=== PATIENT | male | born 1960 | race Two or more races ===

== ENCOUNTER 2018-08-02 06:54 | Day surgery (SDC) | payer OTHER ==
[~2018-08-02 06:54] MED LIST: LACTATED RINGER'S 1,000 ML IV
[2018-08-02] MEDS ORDERED: FENTAnyl 50 MCG/ML VIAL (08:09)
[2018-08-02] MEDS ORDERED: LIDOCAINE 3.5% GEL TUBE (08:10)
[2018-08-02] MEDS ORDERED: MIDAZOLAM 1 MG/ML 2 ML INJ (08:23)
[2018-08-02] MEDS ORDERED: DEXAMETHASONE 4 MG/ML 1 ML INJ (08:23)
[2018-08-02] MEDS ORDERED: METOCLOPRAMIDE 10 MG INJ (08:23)
[2018-08-02] MEDS ORDERED: ONDANSETRON 4 MG INJ (08:23)
[2018-08-02] MEDS: TROPICAMIDE 1% 3 ML OPH OPER (08:42)
[2018-08-02] MEDS: BROMFENAC SODIUM 1.7 ML OPH DROP OPER (08:43)
[2018-08-02] MEDS: TETRACAINE 0.5% 4 ML OPH OPER (08:43)
[2018-08-02] MEDS: CYCLOPENTOLATE 2% 2 ML OPH OPER (08:43)
[2018-08-02] MEDS: MOXIFLOXACIN 0.5% 3 ML OPH OPER (08:43)
[2018-08-02] MEDS: LIDOCAINE 3.5% GEL TUBE OPER (08:44)
[2018-08-02] MEDS: PHENYLephrine 10% 5 ML OPH OPER (08:44)
[2018-08-02] MEDS ORDERED: OXYCODONE/ACETAMINOPHEN (5/325) TAB PO (09:00)
[2018-08-02] MEDS ORDERED: hydrALAzine 20 MG INJ IV (09:00)
[2018-08-02] MEDS ORDERED: EPHEDrine SULFATE 50 MG/5 ML SYG IV (09:00)
[2018-08-02] MEDS ORDERED: ONDANSETRON 4 MG INJ IV (09:00)
[2018-08-02] MEDS ORDERED: METOCLOPRAMIDE 10 MG INJ IV (09:00)
[2018-08-02] MEDS ORDERED: HYDROmorphONE 1 MG/5 ML IV SYRINGE IV ×2 (09:00)
[2018-08-02] MEDS ORDERED: LABETALOL HCL 20MG INJ IV (09:00)
[2018-08-02] MEDS ORDERED: FENTAnyl 50 MCG/ML VIAL IV ×2 (09:00)
[2018-08-02] MEDS: LIDOCAINE 1%/EPI 30 ML INJ (09:02)
[2018-08-02] MEDS ORDERED: CARBACHOL 0.01% 1.5 ML OPH INJ (09:20)
== END 2018-08-02 12:02 | disposition home or self-care (01) ==
LOC: SDS 06:54
DX: H25.041 Posterior subcapsular polar age-related cataract, right eye (principal)
CPT/HCPCS: 66984; 82962